=== PATIENT | male | born 1950 | race Native Hawaiian/Other Pacific Islander ===

== ENCOUNTER 2022-08-22 15:00 | Emergency (ER) | payer OTHER ==
[~2022-08-22] VITALS: Ht 172.7 cm; Wt 103.0 kg
[2022-08-22 15:00] VITALS: BP 126/66; TEMP 97.3
[2022-08-22 15:40] LABS: PLATELET COUNT 187 K/uL (142-355)
[2022-08-22 15:48] LABS: POTASSIUM 4.4 mmol/L (3.6-5.2)
[2022-08-22] MEDS ORDERED: LIPITOR20 MG PO (18:32)
[2022-08-22] MEDS ORDERED: QUETIAPINE50 MG PO (18:33)
[2022-08-22] MEDS ORDERED: QUETIAPINE25 MG PO (18:35)
[2022-08-22] MEDS ORDERED: LISI10TA11 PO (18:36)
[2022-08-22] MEDS ORDERED: DOCUSATE SODIUM1 TA1 PO (18:37)
[2022-08-22] MEDS ORDERED: VITAMIN D50000 UNIT PO (18:38)
[2022-08-22] MEDS ORDERED: IBUP-97 PO (18:39)
== END 2022-08-22 16:47 | disposition still patient (30) ==
LOC: ED 15:00
PROVIDERS: Emergency Medicine Emergency Medical Services
DX: R45.6 Violent behavior (principal); Z02.79 Encounter for issue of other medical certificate
CPT/HCPCS: 80053; 81002; 85027; 87635; 93005; 99285; U0003

== ENCOUNTER 2022-09-10 06:01 | Emergency (ER) | payer OTHER ==
[~2022-09-10] VITALS: Ht 167.6 cm; Wt 122.5 kg
[~2022-09-10 06:01] MED LIST: DOCUSATE SODIUM1 TA1 PO; IBUP-97 PO; LIPITOR20 MG PO; LISI10TA11 PO; QUETIAPINE25 MG PO; QUETIAPINE50 MG PO; VITAMIN D50000 UNIT PO
[2022-09-10 06:31] LABS: PLATELET COUNT 166 K/uL (142-355)
[2022-09-10 06:39] LABS: POTASSIUM 4.5 mmol/L (3.6-5.2)
[2022-09-10 07:41] VITALS: BP 100/54; TEMP 97.6
[2022-09-10] MEDS ORDERED: APIX1TAB PO (10:31)
[2022-09-10] MEDS ORDERED: ATOR20TA2 PO (10:31)
[2022-09-10] MEDS ORDERED: ALBU90AE13 INH (10:31)
[2022-09-10] MEDS ORDERED: CARV3.12 PO (10:32)
[2022-09-10] MEDS ORDERED: VITAMIN D50000 UNIT PO (10:33)
[2022-09-10] MEDS ORDERED: CASA100C53 PO (10:33)
[2022-09-10] MEDS ORDERED: CEFD300C2 PO (10:33)
[2022-09-10] MEDS ORDERED: MOTRIN 400MG TAB PO (10:34)
[2022-09-10] MEDS ORDERED: HYOSCYAMIN PO (10:34)
[2022-09-10] MEDS ORDERED: MAGNSUS68 PO (10:35)
[2022-09-10] MEDS ORDERED: NITR0.4S SL (10:35)
[2022-09-10] MEDS ORDERED: LISI10TA11 PO (10:35)
[2022-09-10] MEDS ORDERED: RANO500T PO (10:36)
[2022-09-10] MEDS ORDERED: OLANZAPINE5 MG PO (10:36)
[2022-09-10] MEDS ORDERED: PRED10TA27 PO (10:36)
== END 2022-09-10 07:59 | disposition still patient (30) ==
LOC: ED 06:01
PROVIDERS: Emergency Medicine
DX: R91.8 Other nonspecific abnormal finding of lung field (principal)
CPT/HCPCS: 36600; 80053; 81002; 82805; 84484; 85027; 93005; 99283